=== PATIENT | female | born 1965 | race Caucasian/White ===

== ENCOUNTER 2024-03-23 13:09 | Emergency (ER) | payer MEDICARE, MEDICAID ==
[2024-03-23 14:17] VITALS: BP 109/72; PULSE 104
== END 2024-03-23 16:08 ==
LOC: VM.ED 13:09 → SUPCPDRO 13:09 → VM.ED 16:08
DX: S52.121A Displaced fracture of head of right radius, initial encounter for closed fracture (principal); E03.9 Hypothyroidism, unspecified; Z79.899 Other long term (current) drug therapy; Z79.890 Hormone replacement therapy; X58.XXXA Exposure to other specified factors, initial encounter
CPT/HCPCS: 73060-RT; 73080-RT; 73090-RT; 99283